=== PATIENT | female | born 1995 | race Asian ===

== ENCOUNTER 2017-04-02 19:35 | Emergency (ER) | payer OTHER ==
[~2017-04-02] VITALS: Ht 162.6 cm; Wt 70.5 kg
[~2017-04-02 19:35] MED LIST: ALBUTEROL0.083 % IN; OXYC5TAB53 PO; PRENATAL1 T10 PO; SM IBUPROFEN200 MG OR
[2017-04-02 20:30] LABS: PLATELET COUNT 299 K/uL (152-353)
[2017-04-02 21:39] VITALS: BP 108/72; TEMP 98.2
== END 2017-04-02 21:40 | disposition home or self-care (01) ==
LOC: ED 19:35
DX: J45.901 Unspecified asthma with (acute) exacerbation (principal); Z33.1 Pregnant state, incidental
CPT/HCPCS: 36415; 84702; 85027; 96374; 99284; J2930

== ENCOUNTER 2018-01-07 15:17 | Emergency (ER) | payer OTHER ==
[~2018-01-07] VITALS: Ht 162.6 cm; Wt 66.7 kg
[2018-01-07 17:16] LABS: PLATELET COUNT 349 K/uL (152-353)
[2018-01-07 17:38] LABS: POTASSIUM 3.7 mmol/L (3.6-5.2)
[2018-01-07 19:55] VITALS: BP 120/74; TEMP 98.7
== END 2018-01-07 19:56 | disposition home or self-care (01) ==
LOC: ED 15:17
DX: K80.80 Other cholelithiasis without obstruction (principal); N83.291 Other ovarian cyst, right side
CPT/HCPCS: 36415; 80053; 81000; 85027; 99283; Q9963

== ENCOUNTER 2018-03-10 06:41 | Emergency (ER) | payer OTHER ==
[~2018-03-10] VITALS: Ht 162.6 cm; Wt 66.7 kg
[2018-03-10 07:14] LABS: PLATELET COUNT 347 K/uL (152-353)
[2018-03-10 09:25] VITALS: BP 116/80; TEMP 98
== END 2018-03-10 09:40 | disposition home or self-care (01) ==
LOC: ED 06:41
PROVIDERS: Emergency Medicine
DX: K29.70 Gastritis, unspecified, without bleeding (principal); K21.9 Gastro-esophageal reflux disease without esophagitis
CPT/HCPCS: 36415; 80053; 81000; 81025; 82150; 83690; 85027; 96365; 96374; 96375; 99284; J1885; J3490; Q9963

== ENCOUNTER 2018-04-12 07:04 | Emergency (ER) | payer OTHER ==
[~2018-04-12] VITALS: Ht 162.6 cm; Wt 66.7 kg
[2018-04-12 08:32] LABS: PLATELET COUNT 384 K/uL (152-353)
[2018-04-12 08:54] LABS: POTASSIUM 4.1 mmol/L (3.6-5.2)
[2018-04-12 13:35] VITALS: BP 120/78; TEMP 98
== END 2018-04-12 13:35 | disposition home or self-care (01) ==
LOC: ED 07:04
PROVIDERS: Internal Medicine
DX: R10.13 Epigastric pain (principal); K81.9 Cholecystitis, unspecified
CPT/HCPCS: 36415; 80053; 82150; 83690; 85027; 96360; 99284

== ENCOUNTER 2018-06-10 23:06 | Emergency (ER) | payer OTHER ==
[~2018-06-10] VITALS: Ht 160 cm; Wt 75.0 kg
[2018-06-11 01:36] LABS: PLATELET COUNT 362 K/uL (152-353)
[2018-06-11 02:42] LABS: POTASSIUM 4.4 mmol/L (3.6-5.2)
[2018-06-11 03:20] VITALS: BP 136/72; TEMP 97.9
== END 2018-06-11 03:20 | disposition home or self-care (01) ==
LOC: ED 23:06
PROVIDERS: Internal Medicine
DX: R10.13 Epigastric pain (principal); R93.3 Abnormal findings on diagnostic imaging of other parts of digestive tract; R11.0 Nausea
CPT/HCPCS: 36415; 80053; 82150; 83690; 85027; 99283; J1885

== ENCOUNTER 2019-11-05 11:53 | Emergency (ER) | payer OTHER ==
[~2019-11-05] VITALS: Ht 160 cm; Wt 87.5 kg
[2019-11-05 12:22] VITALS: BP 128/73; TEMP 98.6
== END 2019-11-05 13:54 | disposition home or self-care (01) ==
LOC: ED 11:53
DX: H60.8X1 Other otitis externa, right ear (principal)
CPT/HCPCS: 96372; 99283; J0696; J1885

== ENCOUNTER 2019-11-13 18:00 | Emergency (ER) | payer OTHER ==
[~2019-11-13] VITALS: Ht 160 cm; Wt 87.5 kg
[2019-11-13 18:12] VITALS: BP 124/75; TEMP 99.1
== END 2019-11-13 18:52 | disposition home or self-care (01) ==
LOC: ED 18:00
DX: H65.191 Other acute nonsuppurative otitis media, right ear (principal); Z79.2 Long term (current) use of antibiotics
CPT/HCPCS: 96372; 99283; J0696; J1885

== ENCOUNTER 2020-01-03 19:21 | Emergency (ER) | payer OTHER ==
[~2020-01-03] VITALS: Ht 160 cm; Wt 85.7 kg
[2020-01-03 19:35] VITALS: BP 133/81
[2020-01-03 20:21] VITALS: TEMP 98.4
== END 2020-01-03 20:21 | disposition home or self-care (01) ==
LOC: ED 19:21
DX: G50.0 Trigeminal neuralgia (principal)
CPT/HCPCS: 99282; 99283

== ENCOUNTER 2020-02-14 13:12 | Emergency (ER) | payer OTHER ==
[~2020-02-14] VITALS: Ht 160 cm; Wt 85.7 kg
[2020-02-14 14:15] VITALS: BP 126/88; TEMP 97.6
== END 2020-02-14 14:26 | disposition home or self-care (01) ==
LOC: ED 13:12
DX: J45.901 Unspecified asthma with (acute) exacerbation (principal)
CPT/HCPCS: 96372; 99282; J1020

== ENCOUNTER 2020-06-05 08:48 | Emergency (ER) | payer OTHER ==
[~2020-06-05] VITALS: Ht 160 cm; Wt 85.7 kg
[2020-06-05 08:51] VITALS: TEMP 98.2
[2020-06-05 10:32] VITALS: BP 118/74
== END 2020-06-05 10:34 | disposition home or self-care (01) ==
LOC: ED 08:48
DX: N39.0 Urinary tract infection, site not specified (principal); N23 Unspecified renal colic
CPT/HCPCS: 81000; 87086; 87088; 96372; 99283; J0696

== ENCOUNTER 2020-10-22 01:56 | Emergency (ER) | payer OTHER ==
[~2020-10-22] VITALS: Ht 160 cm; Wt 85.7 kg
[2020-10-22 02:50] VITALS: BP 122/79; TEMP 98.7
== END 2020-10-22 04:44 | disposition home or self-care (01) ==
LOC: ED 01:56
DX: K02.9 Dental caries, unspecified (principal)
CPT/HCPCS: 96372; 99283; J1885

== ENCOUNTER 2020-11-16 22:29 | Emergency (ER) | payer OTHER ==
[~2020-11-16] VITALS: Ht 160 cm; Wt 85.7 kg
[2020-11-16 23:06] VITALS: BP 118/79; TEMP 97.9
== END 2020-11-16 23:08 | disposition home or self-care (01) ==
LOC: ED 22:29
DX: K08.89 Other specified disorders of teeth and supporting structures (principal); G89.29 Other chronic pain
CPT/HCPCS: 96372; 99283; J0696; J1885

== ENCOUNTER 2021-02-23 22:37 | Emergency (ER) | payer OTHER ==
[~2021-02-23] VITALS: Ht 160 cm; Wt 79.8 kg
[2021-02-24 00:40] VITALS: BP 120/70; TEMP 98.6
== END 2021-02-24 00:40 | disposition home or self-care (01) ==
LOC: ED 22:37
DX: B34.9 Viral infection, unspecified (principal); U07.1 COVID-19
CPT/HCPCS: 81000; 81025; 87502; 87635; 99283; U0003

== ENCOUNTER 2021-03-24 02:21 | Emergency (ER) | payer OTHER ==
[~2021-03-24] VITALS: Ht 160 cm; Wt 79.8 kg
[2021-03-24 03:07] LABS: PLATELET COUNT 324 K/uL (152-353)
[2021-03-24 03:19] LABS: POTASSIUM 3.7 mmol/L (3.6-5.2)
[2021-03-24 03:45] VITALS: BP 120/70; TEMP 98.6
== END 2021-03-24 03:45 | disposition home or self-care (01) ==
LOC: ED 02:21
PROVIDERS: Hospitalist
DX: J45.901 Unspecified asthma with (acute) exacerbation (principal); J40 Bronchitis, not specified as acute or chronic; Z20.822 Contact with and (suspected) exposure to COVID-19
CPT/HCPCS: 36415; 80053; 85027; 87502; 87635; 87651; 96374; 99284; J1100; U0003

== ENCOUNTER 2022-01-09 13:56 | Emergency (ER) | payer OTHER ==
[~2022-01-09] VITALS: Ht 160 cm; Wt 66.7 kg
[2022-01-09 14:00] VITALS: TEMP 98.2
[2022-01-09 15:12] VITALS: BP 114/66
== END 2022-01-09 15:19 | disposition home or self-care (01) ==
LOC: ED 13:56
DX: J45.901 Unspecified asthma with (acute) exacerbation (principal)
CPT/HCPCS: 87502; 94664; 99283; J1885